=== PATIENT | female | born 1980 | race Caucasian/White ===

== ENCOUNTER 2019-09-17 20:53 | Emergency (ER) | payer SELFPAY ==
[2019-09-17 20:56] VITALS: BP 135/94; PULSE 96; RESP 18; TEMP 36.7; O2SAT 100; BMI 25.0
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
[2019-09-17 22:05] VITALS: BP 114/85; PULSE 91; RESP 18; O2SAT 100
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
[2019-09-17 23:09] VITALS: BP 131/72; PULSE 90; RESP 20; O2SAT 99
[2019-09-17 23:19] VITALS: BP 131/72; PULSE 90; RESP 18; O2SAT 99
== END 2019-09-17 23:20 | disposition home or self-care (01) ==
PROVIDERS: Emergency Provider Family Medicine
DX: S20.211A Contusion of right front wall of thorax, initial encounter (principal); F17.210 Nicotine dependence, cigarettes, uncomplicated; V89.2XXA Person injured in unspecified motor-vehicle accident, traffic, initial encounter; Y92.410 Unspecified street and highway as the place of occurrence of the external cause
CPT/HCPCS: 71101; 99281; 99282

== ENCOUNTER 2019-09-24 14:53 | Outpatient (CLI) | payer SELFPAY ==
--- NOTE | 2019-09-24 15:06 | CT_ITS ---
WS: [id number] CT CERVICAL SPINE TECHNIQUE: Noncontrast CT of the cervical spine with coronal and sagittal reformatted images. CLINICAL INFORMATION: CERVICAL RADICULOPATHY COMPARISON: None. DLP: 444.[address] scans at [facility] use at least one of these dose optimization techniques: automat ed exposure control; mA and/or kV adjustment per patient size (includes targeted exams where dose is matched to clinical indication); or iterative reconstruction. FINDINGS: Straightening of the normal cervical lordosis. No high-grade central canal narrowing. Normal C1-C2 ar ticulation. Normal C1 ring. Normal dens. No acute fractures. No significant central canal stenosis. L charles apices are normal. Normal prevertebral soft tissues. Mastoid air cells are well aerated. C2-C3: Normal. C3-C4: Normal. C4-C5: No significant disc bulging. Spinal canal and foramen are patent. C5-C6: No significant disc bulging. Mild left bony foraminal narrowing. Right foramen is patent. Spin al canal is patent. Mild facet arthropathy. C6-C7: Mild facet arthropathy. Mild bilateral bony foraminal narrowing. Spinal canal is patent. C7-T1: No significant disc bulging. Mild right bony foraminal narrowing. Spinal canal is patent. Visualized posterior nasopharynx: Normal. Prevertebral soft tissues: Normal. CT/CT cervical spin wo con* [id number] IMPRESSION: 1. Straightening of the normal cervical lordosis. No acute fractures. 2. Normal C1-2 articulation. Normal C1 ring. 3. No central canal stenosis. 4. Mild bony foraminal narrowing more prominent at left C5-C6, bilateral C6-C7 , and right C7-T1.
--- NOTE | 2019-09-24 15:06 | XR_ITS ---
WS: [id number] Right wrist, 3 views, 09/24/2019 Clinical Data: PAIN IN R WRIST Comparison: None. Findings: No fractures or dislocations are seen. The carpal bones are intact. There is no soft tissue swelling. The distal radius and ulna are not remarkable. XR/XR wrist RT min 3V* [id number] Impression: Negative right wrist.
== END 2019-09-24 14:54 | disposition home or self-care (01) ==
LOC: RAD 15:02
PROVIDERS: PCP Family Medicine; Visit Provider Family Medicine
DX: M54.12 Radiculopathy, cervical region (principal); M25.531 Pain in right wrist
CPT/HCPCS: 72125; 73110

== ENCOUNTER 2020-04-15 09:50 | Outpatient (CLI) | payer SELFPAY ==
--- NOTE | 2020-04-15 09:54 | MR_ITS ---
WS: [id number] MRI CERVICAL SPINE NONCONTRAST TECHNIQUE: Sagittal T1, T2 and STIR imaging. Axial T2, gradient, and fiesta imaging. CLINICAL INFORMATION: CERVICALGIA COMPARISON: None. FINDINGS: Straightening of the normal cervical lordosis. No high-grade central canal stenosis. Cord signal is n ormal. Minimal disc bulging C3-4. C2-C3: Normal. C3-C4: Mild osteophytic ridging with minimal disc bulging. Mild right greater than left bony foramina l narrowing. Mild facet arthropathy. C4-C5: Mild disc osteophytic ridging. Mild left greater than right bony foraminal narrowing. Mild to moderate left greater than right facet arthropathy. C5-C6: Disc osteophytic ridging. Moderate left and no significant right foraminal narrowing. Spinal c anal is patent. Moderate facet arthropathy. C6-C7: Disc osteophytic ridging. Mild left and no significant right foraminal narrowing. Spinal canal is patent. Mild facet arthropathy. C7-T1: Mild left and no significant right foraminal narrowing. Spinal canal is patent. MR/MR cervical spin wo con* [id number] IMPRESSION: 1. Straightening of the normal cervical lordosis. Cord signal is normal. 2. Mild to moderate bony foraminal narrowing mainly due to disc osteophytic ri dging. Worse at left C4-C5, left C5-C6 and left C6-C7. 3. Mild to moderate facet arthropathy worse at left C4-C5
--- NOTE | 2020-04-15 10:25 | XR_ITS ---
WS: [id number] CERVICAL SPINE FLEXION EXTENSION TECHNIQUE: 3 views of the cervical spine: lateral neutral, flexion and extension views. CLINICAL INFORMATION: CERVICALGIA COMPARISON: None. FINDINGS: Normal alignment on the neutral view. Normal alignment on the flexion views. Normal alignment in extension. Posterior elements are normal. No other significant findings. XR/XR cervical spine fl/ex [id number] IMPRESSION: Normal cervical spine
== END 2020-04-15 09:51 | disposition home or self-care (01) ==
LOC: RADWPI 09:51
PROVIDERS: PCP Family Medicine; Visit Provider Nurse Practitioner
DX: M54.2 Cervicalgia (principal); M47.812 Spondylosis without myelopathy or radiculopathy, cervical region; M25.78 Osteophyte, vertebrae
CPT/HCPCS: 72040; 72141